=== PATIENT | female | born 1975 | race Caucasian/White ===

== ENCOUNTER 2016-12-21 08:54 | Observation (INO) | payer BC ==
--- NOTE | 2016-12-20 21:27 | PREOPHP ---
DATE OF ADMISSION: 12/21/2016 HISTORY OF PRESENT ILLNESS: The patient is a 41-year-old female 5, para 3, x3, wh o has been complaining of lower abdominal pain, dyspareunia and chronic pelvic pain. She has been t reated several times for IBS and with nonsteroidal anti-inflammatory drugs and several other pain me dications which did not improve her condition. She was admitted to the hospital for performing lapa roscopy, possible lysis of bowel adhesions and possible right or left salpingo-oophorectomy. PAST MEDICAL HISTORY: Significant for the chronic pelvic pain and endometriosis. MEDICATIONS: She is on: 1. Multivitamin. 2. Iron sulfate. ALLERGIES: NO KNOWN ALLERGIES. PAST SURGICAL HISTORY: x3, laparotomy x2 for pelvic pain and ovarian cystectomy, total ab dominal hysterectomy and abdominoplasty. SOCIAL HISTORY: No tobacco, no ethanol. FAMILY HISTORY: Noncontributory. PHYSICAL EXAMINATION: GENERAL: She is a well-developed, well-nourished female in moderate distress secondary to pelvic pa in and discomfort. VITAL SIGNS: The patient weighs approximately 113 pounds, blood pressure 110/70, pulse rate 76. HEART: Regular rhythm and rate. No murmur. LUNGS: Clear on auscultation and percussion. ABDOMEN: Soft, nontender. PELVIC: Exam reveals tender adnexa right and left equally. EXTREMITIES: No edema. DTRs 1+. ASSESSMENT: Chronic pelvic pain, status post several pelvic and abdominal surgeries, rule out sever e adhesions, rule out chronic endometriosis. PLAN: To perform laparoscopy and possible right and left salpingo-oophorectomy and possible lysis o f bowel adhesions. Dictated By: GENOVEVA JOSÉ/OBDULIA Conf#: [id number] DID#: [id number]
[~2016-12-21] VITALS: Ht 154.9 cm; Wt 51.9 kg
[2016-12-21] VITALS (27 sets, daily range): BP systolic 85–103; BP diastolic 41–55; PULSE 52–82; RESP 10–19; Ht 154.9 cm; Wt 51.9 kg
[~2016-12-21 08:54] MED LIST: GLYCOPYRROLATE 0.4 MG INJ ONE; NEOSTIGMINE 3 MG/3 ML SYRINGE ONE
[2016-12-21] MEDS: LACTATED RINGER'S 1,000 ML IV SCH ×4 (10:00→23:52)
[2016-12-21 10:21] LABS: BASOPHILS % 0.9 % (0.0-2.0); EOSINOPHILS % 0.2 % (0.0-7.0); HEMATOCRIT 34.8 % (37.0-47.0); HEMOGLOBIN 11.8 g/dl (12.0-16.0); INR 1.07; LYMPHOCYTES # 1.4 10^3/ul (0.8-2.9); LYMPHOCYTES % 32.3 % (15.0-51.0); MEAN CORPUSCULAR HEMOGLOBIN 30.3 pg (29.0-33.0); MEAN CORPUSCULAR HGB CONC 33.9 g/dl (32.0-37.0); MEAN CORPUSCULAR VOLUME 89.2 fl (82.0-101.0); MEAN PLATELET VOLUME 11.3 fl (7.4-10.4); MONOCYTE # 0.3 10^3/ul (0.3-0.9); MONOCYTES % 7.6 % (0.0-11.0); NEUTROPHIL # 2.6 10^3/ul (1.6-7.5); NEUTROPHILS % 58.8 % (39.0-77.0); PLATELET COUNT 176 10^3/UL (140-415); PROTIME 13.9 Sec (12.2-14.2); PT RATIO 1.1; RED CELL DISTRIBUTION WIDTH 13.2 % (11.5-14.5)
[2016-12-21 10:22] LABS: PARTIAL THROMBOPLASTIN TIME 30.3 Sec (25.0-35.0)
[2016-12-21 10:25] LABS: ALBUMIN 3.8 g/dl (3.3-4.9); ALBUMIN/GLOBULIN RATIO 1.18; BILIRUBIN,INDIRECT 0.5 mg/dl (0-1.1); BILIRUBIN,TOTAL 0.5 mg/dl (0.2-1.3)
[2016-12-21 10:26] LABS: CALCIUM 8.9 mg/dl (8.4-10.2); CREATININE 0.9 mg/dl (0.44-1.00); POTASSIUM 3.8 mmol/L (3.5-5.1)
[2016-12-21 10:28] LABS: HOLD TRANSMISSIONS 1
[2016-12-21 10:30] LABS: WHITE BLOOD COUNT 4.3 10^3/ul (4.8-10.8)
[2016-12-21] MEDS ORDERED: CEFAZOLIN 2 GM/50 ML (PMX) 50 ML IV SCH (10:30)
[2016-12-21] MEDS ORDERED: FENTAnyl 50 MCG/ML VIAL ONE ×2 (11:16→12:35)
[2016-12-21] MEDS ORDERED: PROPOFOL 20 ML ONE (11:16)
[2016-12-21] MEDS ORDERED: ROCURONIUM 50 MG INJ ONE (11:16)
[2016-12-21] MEDS ORDERED: SUCCINYLCHOLINE CHLORIDE 100 MG/5 ML SYG IV ONE (11:16)
[2016-12-21] MEDS ORDERED: LIDOCAINE 2% (SDV) 5 ML INJ ONE (11:16)
[2016-12-21] MEDS ORDERED: MIDAZOLAM 1 MG/ML 2 ML INJ ONE (11:16)
[2016-12-21] MEDS ORDERED: CEFAZOLIN 1 GM INJ ONE (11:32)
[2016-12-21] MEDS ORDERED: FAMOTIDINE 20 MG INJ ONE (11:32)
[2016-12-21] MEDS ORDERED: DEXAMETHASONE 4 MG/ML 1 ML INJ ONE (11:32)
[2016-12-21] MEDS ORDERED: ONDANSETRON 4 MG INJ ONE (11:32)
[2016-12-21] MEDS ORDERED: BUPIVACAINE 0.5%/EPI (SDV) 30 ML INJ ONE (11:59)
[2016-12-21] MEDS ORDERED: METHYLENE BLUE 1% 10 ML INJ ONE (12:36)
[2016-12-21] MEDS ORDERED: HYDROmorphONE 2 MG/ML SYG ONE (13:22)
[2016-12-21] MEDS ORDERED: morphine 2 MG INJ IV PRN (14:00)
[2016-12-21] MEDS ORDERED: KETOROLAC 30 MG INJ IV PRN (14:00)
[2016-12-21] MEDS ORDERED: HYDROmorphONE (0.2 MG/ML) 10ML SYG IV PRN (14:00)
[2016-12-21] MEDS ORDERED: PROCHLORPERAZINE 10 MG INJ IV PRN (14:00)
[2016-12-21] MEDS ORDERED: MEPERIDINE 25 MG INJ IV PRN (14:00)
[2016-12-21] MEDS ORDERED: FENTAnyl 50 MCG/ML VIAL IV PRN (14:00)
[2016-12-21] MEDS ORDERED: DIPHENHYDRAMINE 50 MG INJ IV PRN ×2 (14:00)
[2016-12-21] MEDS ORDERED: ZOLPIDEM 5 MG TAB PO PRN (14:00)
[2016-12-21] MEDS ORDERED: ONDANSETRON 4 MG INJ IV PRN (14:00)
--- NOTE | 2016-12-21 14:04 | OPPN ---
Date/Time of Note Date/Time of Note DATE: 12/21/16 TIME: 13:55 Operative Report Planned Procedure Procedure date Dec 21, 2016 Procedure(s) laparoscopy,lysis of adhesions,right salpingo-oophorectomy.left ovarian cystectomy,left salpingectomy,repair of abdominal hernia,bilateral urethral dissection Performed by see signature line Barrel Polisher Nikolai carlton Pre-procedure diagnosis chronic pelvic pain Anesthesia Type: general Post-Procedure Post-procedure diagnosis severe pel;keerthi adhesion,right hemorrhagic ovarian cyst,midline incisional ( abdominal) hernia,severe adhesion of left ovary to bladder and ureter Findings severe pelvic adhesion,hernia Estimated Blood Loss: 100 - 200 mls Specimen(s) right adnea,left fallopian tube,left ovarian cyst,hernia Grafts/Implant(s) none Complication(s) none GENOVEVA JACOBSON MD Dec 21, 2016 14:04
--- NOTE | 2016-12-21 15:19 | OPR ---
DATE OF OPERATION: 12/21/2016 PREOPERATIVE DIAGNOSIS: Severe pelvic pain, status post multiple pelvic and abdominal surgeries. POSTOPERATIVE DIAGNOSES: 1. Severe pelvic pain, status post multiple pelvic and abdominal surgeries. 2. Severe pelvic adhesions and incisional abdominal hernia of the midline and right hemorrhagic ova desirae cyst. Severe adhesion of the ureters to the right and left side and adhesion of the left adnex a to the bladder. PROCEDURE PERFORMED: Laparoscopy, lysis of severe bowel and omental adhesions, right salpingo-oopho rectomy, and left ovarian cystectomy, left salpingectomy, and repair of the abdominal hernia, and bi lateral ureteral dissection, which was done by Dr. Stanley will be dictated separately. SURGEON: Genoveva Sinclair MD TIRE FABRICATOR SURGEON: Nikolai Stanley MD ANESTHESIA: General. ESTIMATED BLOOD LOSS: 100 mL. COMPLICATIONS: None. FINDINGS: Severe adhesion of the pelvis bilaterally and adhesions of the omentum to the abdominal w all via a 3 cm incisional hernia: INDICATION: This patient is a 41-year-old female, 5, para 3, x3 with previous mul tiple ____ abdominal surgeries, complaining of chronic pelvic pain for the last several years that d id not alleviate with medical treatment, was brought to the operating room for above procedure. Emily or to surgery, risks and alternatives of the procedure, especially oophorectomy was explained to the patient and the in detail. She desired to proceed. She was brought to the operating room in stable condition. After induction of general anesthesia, s he was placed in supine lithotomy position. She was prepped and draped in usual sterile fashion. A 2 cm incision was done 1 inch above the umbilicus and then #5 blunt 5 mm trocar was introduced by ramez friedmanct visualization of the scope. Once in the abdomen, the abdomen was inflated with 4 liters of CO 2. The laparoscope was introduced by direct visualization of the laparoscope. A second trocar and third trocar was introduced in the left and right upper quadrant parallel to the umbilicus, also 5 m m. It was noticed that there is severe pelvic adhesion with obliteration of the normal anatomy in t he right and left adnexa. The right adnexa showed severe adhesion of the ovary and fallopian tube t o the abdominal wall and the surrounding tissues including the ureter. The ureter was dissected off by Dr. Stanley, which was severe adhesion, will be dictated separately. Then, after detachment of the adnexa from the abdominal wall, the infundibulopelvic ligament was dissected off of the adhesio ns and by using guidance graspers, it was cauterized and cut off and was placed in the pelvis tempor arily. The left adnexa also shows severe adhesions to the bladder and the surrounding tissue. The ureters were dissected off by Dr. Stanley and then after detaching the adnexa from the bladder, whi ch was inflated with 150 mL of methylene blue. After dissecting off from the bladder and the pelvic wall, more adhesions were lysed in the surrounding tissue and there was a left ovarian cyst which w as dissected out by using the ____ and it was removed intact, sent to pathology. Also, the left fal lopian tube which was severely adherent to the surrounding tissue was carefully detached and removed and sent to pathology. Several areas of the bleeding was stopped with the tip of the ____ graspers . It was noticed that there was an abdominal incisional hernia approximately 3 to 3.5 cm in the mid line transversely to 5 cm above the pubic bones. There were some omental adhesion to that. These a dhesions were lysed, removed. The omentum was freed up and then incision above the hernia was exten ded on the skin approximately 3.5 cm. A #12 trocar was introduced through that. Right fallopian tu be and the ovaries were removed by using Endo basket, sent to pathology and the hernia was repaired by applying 4 prldev-iz-cunizi using #1 Vicryl using the Endoloop. A copious amount of irrigation w as done. It was suctioned out. No site of the bleeding was seen. At this point, the procedure was terminated. Abdomen was deflated. The incisional site of the midline incision was, as previously mentioned, was closed with #1 Vicryl in [id number]. Multiple subcutaneous tissues were sutured with 4-0 Monocryl and the skin was closed with 4-0 Monocryl. Incision site was dressed and they we re injected with 15 mL of 0.5% Marcaine with adrenaline for local anesthesia. At this point, proced ure was terminated. The patient was awakened and extubated in the OR. She was brought to recovery room in stable condition. She should receive 24 hours for observation in the hospital. Dictated By: GENOVEVA JOSÉ/OBDULIA Conf#: [id number] DID#: [id number]
[2016-12-21 16:35] LABS: ABNORMAL IP MESSAGE 1; BASOPHILS % 0.3 % (0.0-2.0); HEMATOCRIT 35.3 % (37.0-47.0); HEMOGLOBIN 11.8 g/dl (12.0-16.0); LYMPHOCYTES # 0.6 10^3/ul (0.8-2.9); LYMPHOCYTES % 4.6 % (15.0-51.0); MEAN CORPUSCULAR HEMOGLOBIN 30.8 pg (29.0-33.0); MEAN CORPUSCULAR HGB CONC 33.4 g/dl (32.0-37.0); MEAN CORPUSCULAR VOLUME 92.2 fl (82.0-101.0); MEAN PLATELET VOLUME 10.8 fl (7.4-10.4); MONOCYTE # 0.2 10^3/ul (0.3-0.9); MONOCYTES % 1.3 % (0.0-11.0); NEUTROPHIL # 11.1 10^3/ul (1.6-7.5); NEUTROPHILS % 93.5 % (39.0-77.0); PLATELET COUNT 150 10^3/UL (140-415); RED BLOOD COUNT 3.83 10^6/ul (4.20-5.40); RED CELL DISTRIBUTION WIDTH 13.4 % (11.5-14.5); WHITE BLOOD COUNT 11.9 10^3/ul (4.8-10.8)
[2016-12-21 16:36] LABS: POSITIVE DIFF @See below
[2016-12-21 16:51] LABS: INR 1.13; PROTIME 14.5 Sec (12.2-14.2); PT RATIO 1.1
[2016-12-21 16:52] LABS: PARTIAL THROMBOPLASTIN TIME 30.3 Sec (25.0-35.0)
--- NOTE | 2016-12-21 17:34 | HP ---
DATE OF ADMISSION: 12/21/2016 CHIEF COMPLAINT AND HISTORY OF PRESENT ILLNESS: The patient is a 41-year-old female who is 5, para 3, status post x3, has had chronic lower abdominal pain, mostly in the left lower abdomen, and dyspareunia. The patient has had treatment for irritable bowel syndrome with nonsteroi destiny anti-inflammatory medication. The patient was taking ibuprofen and sometimes Ultram. The patie nt continues to remain symptomatic. The patient was seen by Dr. Katherin Jacobson and was taken to O R. The patient underwent laparoscopy, lysis of severe bowel and omental adhesions, right salpingo-o ophorectomy, left ovarian cystectomy, left salpingectomy, repair of abdominal hernia and bilateral u reteral dissection which was done by Dr. Stanley. The patient postoperatively had significant pain . The patient is being admitted for further evaluation and management. The patient denies any ches t pain. She is breathing comfortably on room air oxygen. Does not have shortness of breath. No re ported fever. No reported vomiting since admission. The patient does not have any focal weakness. Remains awake and responsive. REVIEW OF SYSTEMS: Other than postoperative pain, the rest of the review of systems were unremarkab le. PAST MEDICAL HISTORY: As stated above. MEDICATIONS: The patient was on multivitamin, iron, ibuprofen and Ultram on p.r.n. basis. ALLERGIES: NONE. PAST SURGICAL HISTORY: The patient is status post x3, history of hysterectomy, abdominopl asty, laparotomy x2 for pelvic pain in the past (details not available). SOCIAL HISTORY: No smoking, no alcohol. FAMILY HISTORY: Noncontributory. PHYSICAL EXAMINATION: GENERAL: The patient is conscious, awake, alert. VITAL SIGNS: Temperature 98.1, pulse 58, respirations 17, blood pressure 100/48, O2 sat 97% on room air. HEENT: No eye discharge or redness. Nose and ears normal. NECK: No mass. CHEST: Fairly clear. CARDIOVASCULAR: S1, S2 normal, no murmur. ABDOMEN: The patient is status post surgery. EXTREMITIES: No edema. Pedal pulses palpable. SKIN: Without any rash. NEUROLOGIC: The patient is awake and responsive. LABORATORIES: WBC 4.3, hemoglobin 11.8, platelets 176. Sodium 142, potassium 3.8, BUN 17, creatini ne 0.9. Liver enzymes normal. IMPRESSION: 1. Severe pelvic pain, status post multiple pelvic and abdominal surgeries in the past, now admitte d after laparoscopy, lysis of bowel and omental adhesions, left salpingo-oophorectomy, left ovarian cystectomy, left salpingectomy, repair of abdominal hernia and bilateral ureteral dissection. The p atient will be admitted on medical/surgical floor and will be kept n.p.o. Will be started on intrav enous fluid, intravenous morphine and intravenous Toradol for pain control and intravenous Zofran fo r nausea, vomiting. Will use sequential compression devices for deep venous thrombosis prophylaxis. Once the patient is able to take p.o. pain medication, she will be started on [place]. Further temo mmendations will depend on the patient's hospital course. Dictated By: JANICE GAMBLE MD AB/NTS Conf#: [id number] DID#: [id number] CC: GENOVEVA JACOBSON MD;*EndCC*
[2016-12-22] MEDS: ONDANSETRON 4 MG INJ IV PRN ×2 (01:59→09:25)
[2016-12-22 02:00] VITALS: BP 94/52; RESP 20
[2016-12-22] MEDS: HYDROCODONE/APAP (10/325) TAB PO PRN ×2 (02:00→09:22)
[2016-12-22] MEDS: LACTATED RINGER'S 1,000 ML IV SCH ×3 (02:00→09:41)
[2016-12-22 07:55] VITALS: BP 97/53; RESP 16
[2016-12-22 15:19] VITALS: BP 92/55; RESP 18
[2016-12-22 16:10] LABS: BASOPHILS % 0.5 % (0.0-2.0); EOSINOPHILS % 0.2 % (0.0-7.0); HEMATOCRIT 32.2 % (37.0-47.0); HEMOGLOBIN 10.8 g/dl (12.0-16.0); LYMPHOCYTES # 1.6 10^3/ul (0.8-2.9); LYMPHOCYTES % 26.5 % (15.0-51.0); MEAN CORPUSCULAR HEMOGLOBIN 30.9 pg (29.0-33.0); MEAN CORPUSCULAR HGB CONC 33.5 g/dl (32.0-37.0); MEAN CORPUSCULAR VOLUME 92.3 fl (82.0-101.0); MEAN PLATELET VOLUME 11.2 fl (7.4-10.4); MONOCYTE # 0.4 10^3/ul (0.3-0.9); MONOCYTES % 6.2 % (0.0-11.0); NEUTROPHIL # 4.1 10^3/ul (1.6-7.5); NEUTROPHILS % 66.3 % (39.0-77.0); PLATELET COUNT 137 10^3/UL (140-415); RED BLOOD COUNT 3.49 10^6/ul (4.20-5.40); RED CELL DISTRIBUTION WIDTH 13.5 % (11.5-14.5); WHITE BLOOD COUNT 6.2 10^3/ul (4.8-10.8)
[2016-12-22 16:29] LABS: CALCIUM 8.3 mg/dl (8.4-10.2); CREATININE 1.02 mg/dl (0.44-1.00); POTASSIUM 3.7 mmol/L (3.5-5.1)
--- NOTE | 2016-12-22 21:51 | DS ---
Date/Time of Note Date/Time of Note DATE: 12/22/16 TIME: 21:49 Discharge Summary Admission/Discharge Info Admit Date/Time Dec 21, 2016 at 10:19 Discharge Date/Time Dec 22, 2016 at 16:56 Patient Condition: Stable Hx of Present Illness The patient is a 41-year-old female who is 5, para 3, status post C- section x3, has had chronic lower abdominal pain, mostly in the left lower abdomen, and dyspareunia. The patient has had treatment for irritable bowel syndrome with nonsteroidal anti-inflammatory medication. The patient was taking ibuprofen and sometimes Ultram. The patient continues to remain symptomatic. The patient was seen by Dr. Katherin Sinclair and was taken to OR. The patient underwent laparoscopy, lysis of severe bowel and omental adhesions , right salpingo-oophorectomy, left ovarian cystectomy, left salpingectomy, repair of abdominal hernia and bilateral ureteral dissection which was done by Dr. Stanley. The patient postoperatively had significant pain. The patient is being admitted for further evaluation and management. The patient denies any chest pain. She is breathing comfortably on room air oxygen. Does not have shortness of breath. No reported fever. No reported vomiting since admission. The patient does not have any focal weakness. Remains awake and responsive. Hospital Course Pt has prescription for [place] given by surgeon prior to surgery. 1. Severe pelvic pain, status post multiple pelvic and abdominal surgeries in the past, now admitted after laparoscopy, lysis of bowel and omental adhesions, left salpingo-oophorectomy, left ovarian cystectomy, left salpingectomy, repair of abdominal hernia and bilateral ureteral dissection. The patient will be admitted on medical/surgical floor and will be kept n.p.o. Will be started on intravenous fluid, intravenous morphine and intravenous Toradol for pain control and intravenous Zofran for nausea, vomiting. Home Meds No Active Prescriptions or Reported Meds Follow-up Plan f/up with Dr Sinclair in 1 week. Primary Care Provider Not On Staff Doctor Time spent on discharge: > 30 minutes Pending Labs Laboratory Tests Test 12/22/16 15:39 12/22/16 15:40 White Blood Count 6.210^3/ul (4.8-10.8) Red Blood Count 3.4910^6/ul (4.20-5.40) Hemoglobin 10.8g/dl (12.0-16.0) Hematocrit 32.2% (37.0-47.0) Mean Corpuscular Volume 92.3fl (82.0-101.0) Mean Corpuscular Hemoglobin 30.9pg (29.0-33.0) Mean Corpuscular Hemoglobin Concent 33.5g/dl (32.0-37.0) Red Cell Distribution Width 13.5% (11.5-14.5) Platelet Count 16129^3/UL (140-415) Mean Platelet Volume 11.2fl (7.4-10.4) Neutrophils % 66.3% (39.0-77.0) Lymphocytes % 26.5% (15.0-51.0) Monocytes % 6.2% (0.0-11.0) Eosinophils % 0.2% (0.0-7.0) Basophils % 0.5% (0.0-2.0) Nucleated Red Blood Cells % 0.0/100WBC (0.0-0.0) Neutrophils # 4.110^3/ul (1.6-7.5) Lymphocytes # 1.610^3/ul (0.8-2.9) Monocytes # 0.410^3/ul (0.3-0.9) Eosinophils # 0.010^3/ul (0.0-0.5) Basophils # 0.010^3/ul (0.0-0.1) Nucleated Red Blood Cells # 0.010^3/ul (0.0-0.0) Sodium Level 144mmol/L (135-144) Potassium Level 3.7mmol/L (3.5-5.1) Chloride Level 107mmol/L (97-110) Carbon Dioxide Level 30mmol/L (21-31) Anion Gap 11 (8-16) Blood Urea Nitrogen 9mg/dl (7-20) Creatinine 1.02mg/dl (0.44-1.00) Glucose Level 112mg/dl (70-220) Calcium Level 8.3mg/dl (8.4-10.2) SANDRA VERGARA Dec 22, 2016 21:51
--- NOTE | 2016-12-25 20:48 | OPR ---
Date/Time of Note Date/Time of Note DATE: 12/25/16 TIME: 20:46 Operative Report Preoperative Diagnosis 2 OPERATIVE REPORT [facility] Name: Edda Bell Medical Date: 12/21/16 Preoperative Diagnosis: 1- Pelvic mass 2- Pelvic pain 3- Possible incisional hernia Postoperative Diagnosis: 1. Complex right adnexal mass 2. Left Para tubal cyst 3. Extensive Anterior and pelvic Adhesions 4. Bilateral ureteral stricture Procedures: 1. Bilateral ureteral dissection with repositioning 2. Repair of scar tissue and repair of incision hernia (dictated as a separate procedure by Dr. Villalobos) 3. Laparoscopic left salpingectomy Wilfredo) 4. Laparoscopic right salpingoophorectomy and lysis of adhesions (dictated as a separate procedure by Dr. Villalobos) Surgeon: Dr. Stanley Cooler Conveyor Loader: Dr. Villalobos Anesthesia: General Indications; The patient had functional ovaries but severe pain and GI pain and had extensive prior open surgery. I was asked to function as a spa consultant as needed. Name: Edda Bell Medical Findings and Summary After exploration and lysis of adhesion we observed considerable pelvic adhesions with anterior adhesions. Because both adnexia were adherent to the sidewall on the left and the right densely adherent to the sidewall and anterior abdomen with a mass it was necessary to dissect and reposition the ureters bilaterally. The right adnexa was then removed without incident and noted to be benign on frozen section and tube removed and the hernia removed. Procedure: After being prepped and draped in the usual manner a 5 millimeter trocar was placed cephlad to the umbilicus without incident. Subsequently, we insufflated to 15 mm Hg and under direct observation with a 0-degree scope placed two 5 millimeter trocars laterally and a 12 millimeter trocar suprapubically. At this time pelvic adhesions were lysed with sharp dissection and the Gyrus Cutting Forceps if not adjacent to bowel. A large segment of omentum was densely adherent to the LLQ anterior abdomen and anterior enterolysis was accomplished without incident with sharp dissection and the Thunder[place] and the omentum was mobilized but was noted to be in an incisional hernia. The pelvis was subsequently inspected and we observed a complex right adnexal mass densely adherent to the sidewall and anterior abdomen. The contralateral ovary was found to be involved with a more normal anatomy with a smaller paratubal cyst and extensively adherent to the sidewall and adjacent to the aforementioned hernia. Of note, the cul-de-sac was somewhat obliterated on the left. As the anatomy was distorted bilaterally and the ureteral anatomy obscured, it was requested by Dr. Villalobos that I perform a ureteral dissection with repositioning bilaterally, as a separate procedure, so that the intended procedure of a laparoscopic necessary RSO and left LS and salivation could be completed Name: Edda Bell Medical without complication nor the necessity of converting the procedure to an open one with associated morbidity and cost, and the hernia could be prepared. Consequently, the ureteral dissection with repositioning was undertaken. The right round ligament was transected with a Gyrus bipolar cutting forceps and the retroperitoneum opened parallel to the infundibulo-pelvic (IP) ligament with the Gyrus bipolar cutting forceps used sharply and for hemostasis. The ureter was identified, and noted to be densely adherent to the broad ligament and adnexa due to distortion and was also somewhat distorted anatomically. The ureter was dissected away from the peritoneum and repositioned with great care using the endo-dissector and the Gyrus bipolar cutting forceps and Omni bluntly. This process was carried out throughout the ureteral length in the pelvis and it peristalsed normally once repositioned. A this time the laparoscopic RSO and removal from bladder without incident was completed by Dr. Villalobos and we addressed the contralateral side. Subsequently, the left round ligament was transected laterally with the Gyrus bipolar cutting forceps as previously done on the contralateral side and the retroperitoneum opened parallel to the infundibulo-pelvic (IP) ligament with the Gyrus bipolar cutting forceps. The ureter was identified, and noted to also be adherent to the immediate IP-ligament and somewhat distorted anatomically. Hence the ureteral dissection with repositioning was undertaken. The ureter was dissected away from the vasculature and peritoneum with adjacent vasculature and repositioned with care using the endo-dissector, Gyrus bipolar cutting forceps bluntly, and the Omni. This process was carried out throughout the ureteral length in the pelvis and it peristalsed normally once repositioned. The dissection was continued distally as the mass was densely adherent to the sidewall and adjacent aforementioned hernia. The laparoscopic LS as planned was then completed by Dr. Villalobos uneventfully. The larger mass was sent for frozen section and confirmed to be Name: Edda Bell Medical negative. After irrigating and assuring hemostasis the 12 millimeter trocar was removed and the fascia was closed with 1-vicryl using an endo-close devise separately for the hernia after clean age and revising by Dr. Villalobos. The gas was removed and the skin of all sites then closed with 5-0 Monocryl suture. The EBL was 100 cc and the patient tolerated the procedure well and left the OR in good condition. Daisy Stanley M.D. Postoperative Diagnosis as above Operation/Procedure Performed as above Surgeon see signature line Cooler Conveyor Loader as above Anesthesia Type: general Estimated Blood Loss: 50 - 100 ml's Transfusion none Specimen multiple Grafts/Implants none Tubes/Drains none Complications none Procedure Description as above DAISY STANLEY MD Dec 25, 2016 20:48
== END 2016-12-22 16:56 | disposition home or self-care (01) ==
LOC: SDS 08:54 → SUR 08:54 → REC 10:19 → SUR 10:19 → PP2 17:25
DX: N83.11 Corpus luteum cyst of right ovary (principal); N83.01 Follicular cyst of right ovary; N83.202 Unspecified ovarian cyst, left side; N83.8 Other noninflammatory disorders of ovary, fallopian tube and broad ligament; N73.6 Female pelvic peritoneal adhesions (postinfective); K43.2 Incisional hernia without obstruction or gangrene; N13.5 Crossing vessel and stricture of ureter without hydronephrosis; Z91.040 Latex allergy status
CPT/HCPCS: 49654; 50715; 58661; 58662; 80048; 80053; 85025; 85610; 85730; 86592; 86850; 86900; 86901; 87086; 99217; G0378; J0690; J1100; J1170; J2250; J2270; J2405; J2710; J3010; J7120